=== PATIENT | female | born 1945 | race Caucasian/White ===

== ENCOUNTER 2016-07-24 14:32 | Inpatient (IN) | payer OTHER, BC ==
[~2016-07-24] VITALS: Ht 157.5 cm; Wt 54.4 kg
--- NOTE | ~2016-07-24 | CNG ---
[facility] [place] [address] CYTO-NONGYN REPORT PROCEDURE Name: JENNIFER YUNG Room #: 540-P [facility] IN M.R.#: [id number] Admission: 07/24/16 Date of : 43 Discharge: 07/29/16 Report #: [id number] Path Case #: [id number] CYTOPATHOLOGY REPORT COLLECTION DATE: 07/25/2016 RECEIVED DATE: 07/25/2016 SUBMITTING PHYS: Dr. Tim Navarro OTHER PHYS: Dr. Jackie Lara CLINICAL HISTORY: Abdominal ascites; bloating; abdominal masses. SPECIMEN(S) RECEIVED: A.Abdominal fluid * * * * * * * * * * * * FINAL DIAGNOSIS: Abdominal fluid: - RARE TUMOR CLUSTERS IDENTIFIED FORMING GLANDS, HIGHLY SUSPICIOUS FOR AN ADENOCARCINOMA. COMMENT: Immunoperoxidase stains are performed. (cell block) Javon-EP4: membranous reactivity present within the clusters of atypical cells Calretinin: non-reactive within the cells of interest Desmin: reactive within the mesothelial cells. Based on the morphology, the immunohsitochemical stains and the history of ovarian masses, the cells are most likely suggestive of an adenocarcinoma. The diagnosis is limited due to the scant cellularity of the malignant cells. [place]: Dr. Esha Ellsworth. Findings are discussed with Dr. Flores at 4:00 pm on 07/29/16. (IUV; 07/26/16) PATHOLOGIST: Na U. Vadlamani, M.D. REPORT ELECTRONICALLY SIGNED BY: Na Taveras M.D. DATE/TIME: 07/29/2016 16:18 * * * * * * * * * * * * GROSS PATHOLOGY: A. Abdominal fluid: The specimen is submitted unfixed, labeled "Jennifer Yung". Received by the Cytology Department is 25 mL of cloudy red fluid. One ThinPrep slide and a cell block were prepared. (clt 07.25.2016) CLIENT TECHNICAL PROFESSIONAL(S): NADIA Davila(ASCP), [address] [address] CYTO-NONGYN REPORT PROCEDURE Name: JENNIFER YUNG Room #: 540-P [facility] IN ..#: [id number] Admission: 07/24/16 Date of : 43 Discharge: 07/29/16 Report #: [id number] Path Case #: [id number] INITIAL CPT CODE(S): A; 67482, 21545, 50613, 02946, 49093 Professional services performed by [facility] at [address], [place] [address] [facility] performed by [facility] at [address] [place] [address]., [address], [place] [address]. [facility], [address] [place] [address] PHONE: [phone] DIRECTOR: Magnus W. Hiral, M.D. * * * END OF REPORT * * *
--- NOTE | ~2016-07-24 | P ---
[facility] [place] [address] PROCEDURE REPORT Name: ZE CALDERA Room #: 540-P [facility] IN M.R.#: [id number] Admission: 07/24/16 Attend Phys: Ramon Dumont MD Discharge: Date of : 43 Report #: [id number] THIS REPORT FOR: //name// CC: Ramon [facility] L[facility] DATE OF SERVICE: 07/27/2016 PROCEDURE PERFORMED: Colonoscopy. HISTORY OF PRESENT ILLNESS: The patient is a 70-year-old female with abdominal distention, had normal CT showing massive ascites as well as likely metastatic ovarian cancer CA-125 level was significantly elevated. The reason for EGD and colonoscopy is for anemia. EGD showed severe grade D erosive esophagitis. DESCRIPTION OF PROCEDURE: The risks and benefits of the procedure were explained to the patient, those risks including but not limited to bleeding, perforation, the risk of sedation. She understood these risks and gave informed consent. Conscious sedation was given using fentanyl and Versed. Next, a digital rectal exam was abnormal and I felt a mass within the rectum, although this may be external compression on digital exam. Next, using a standard [employer] colonoscope, the scope was placed in the patient's anus and advanced under direct vision to approximately hepatic flexure. At this point, the colon was very redundant, her abdomen was distended. Because of her ascites I did not want to press any further at this point. The transverse, descending, and sigmoid colon were all normal. The rectal mucosa was normal, however, again, I was able to palpate external compression in the rectum. There was no mucosal abnormality; however. The scope was then withdrawn and the procedure terminated. The patient tolerated the procedure well. IMPRESSION: 1. Unable to pass the scope into the ascending colon; however, transverse, descending and sigmoid were all normal. The rectal mucosa was normal, but there was an obvious abnormality noted on digital rectal exam consistent with an external compression into the rectal mucosa. RECOMMENDATIONS: 1. No evidence of active bleeding on EGD or colonoscopy today. As per EGD report recommend PPI therapy and Carafate. 2. Await further workup for possible ovarian cancer. [address] [address] PROCEDURE REPORT Name: ZE CALDERA Room #: 540-P [facility] IN .R.#: [id number] Admission: 07/24/16 Attend Phys: Ramon Dumont MD Discharge: Date of : 43 Report #: [id number] Thank you for allowing me to participate in her care. <ELECTRONICALLY SIGNED> By: Phoenix Han MD 07/28/16 0922 1140 12 Phoenix Han MD /nt
--- NOTE | ~2016-07-24 | P ---
[facility] [place] [address] PROCEDURE REPORT Name: ZE CALDERA Room #: 540-P ADM IN M.R.#: [id number] Admission: 07/24/16 Attend Phys: Ramon Dumont MD Discharge: Date of : 43 Report #: [id number] THIS REPORT FOR: //name// CC: Ramon Lara DATE OF SERVICE: 07/27/2016 PROCEDURE PERFORMED: Upper endoscopy. HISTORY OF PRESENT ILLNESS: The patient is a 70-year-old female with abdominal distention, who underwent a CT scan of the abdomen and pelvis on 07/24/2016 showing multiple large intraperitoneal masses highly concerning for ovarian tumor with multiple metastasis. Massive ascites was noted, small pleural infusions were noted, hepatic lesions also noted. The patient has iron deficiency anemia as well as dysphagia. Paracentesis was performed on the removing 3.4 liters blood tinged ascites, the cytology is pending. The plan is for an EGD and colonoscopy at this point. DESCRIPTION OF PROCEDURE: The risks and benefits of the procedure were explained to the patient, those risks including but not limited to bleeding, perforation, the risk of sedation. She understood these risks and gave informed consent. Conscious sedation was given using fentanyl and Versed. Next, using a standard [employer] upper endoscope, the scope was placed in the patient's mouth and advanced under direct vision through the esophagus, stomach and into the second portion of the duodenum. The upper esophagus was normal. In the mid to distal esophagus, there was severe grade D erosive esophagitis with several ulcerations. There was no active bleeding, but the mucosa was very friable. Upon entering the stomach, a moderate sized hiatal hernia was noted. Overall, the gastric mucosa was normal. The pylorus was normal and patent. The duodenal bulb, first and second portion were all normal. The scope was then withdrawn and the procedure terminated. The patient tolerated the procedure well. IMPRESSION: 1. Severe grade D erosive esophagitis. 2. Hiatal hernia. 3. Otherwise, normal upper endoscopy. RECOMMENDATIONS: 1. Recommend b.i.d. PPI therapy as well as liquid Carafate. 2. We will proceed with colonoscopy next today. [address] [address] PROCEDURE REPORT Name: ZE CALDERA Katherin Room #: 540-P [facility] IN [facility].#: [id number] Admission: 07/24/16 Attend Phys: Ramon Dumont MD Discharge: Date of : 43 Report #: [id number] Thank you for allowing me to participate in her care. <ELECTRONICALLY SIGNED> By: Phoenix Han MD 07/28/16 0922 1137 45 Phoenix Han MD /nt
--- NOTE | ~2016-07-24 | HC ---
[facility] [place] [address] CONSULTATION Name: ZE CALDERA Room #: 540-P ADM IN M.R.#: [id number] Admission: 07/24/16 Attend Phys: Rmaon Dumont MD Discharge: Date of : 43 Report #: [id number] THIS REPORT FOR: //name// CC: Ramon Lara MD REASON FOR CONSULTATION: Abdominal masses and ascites and possible liver metastasis. HISTORY OF PRESENT ILLNESS: The patient is a 70-year-old female, originally from [place], who lives here now, now had been here in town and who noted about may be a several-week history of not feeling good and about 2- or 3-day history of ankle swelling. She denies fevers, chills, weight change or shortness of air. She does have some intermittent swallowing trouble sometimes. She is also a little bit more gassy. She notes her ankle has been a little bit more swollen for the last several days. She had not noticed any blood in her urine or stool that she is aware of. She has had some abdominal discomfort. She has still been working part-time. Here in the emergency room, she was found to have a CAT scan that showed multiple large intraperitoneal masses, mixed cystic and solid, worrisome for ovarian cancer with multiple mets, mass with ascites, possible hepatic lesions and pathologic celiac and retroperitoneal adenopathy. The patient had not had any previous difficulties and has had never been anemic before. I do not believe she has had a colonoscopy and EGD either ever or in quite some time; we will need to clarify this. SOCIAL HISTORY: She is semi-retired, works at [employer] home and I think, she said for about 22 years. Nonsmoker. No alcohol, no street drugs. FAMILY HISTORY: It sounds like father when she was young; she is not really sure much about that. Mother, she mentioned, hypertension and lipid abnormalities, I think. She also said she may have had cancer and had hysterectomy, but survived it. She thought maybe ovarian cancer, but I would be more suspicious of a cervical or uterine abnormality. One brother had pancreatic cancer at age 57. Another brother recently, she is not sure of what; [place]. I think, no sisters and no children. She is here with a very good friend of hers, Vignesh Reaves. LABORATORY DATA: Other tests and exams here include, as I said, CT abdomen and pelvis, which talked about the multiple large intraperitoneal masses, highly suspicious for ovarian tumor with multiple metastasis and masses or ascites. She has also had lab tests with a CBC that showed a white count of 9.3, hemoglobin 9.9, MCV 80.4 with an RDW of 15.2 and platelets of 512,000. Differential mostly non-acute. BMP, we will also check liver function tests as we do not have that. We will also check a CEA and a CA-125. [address] [address] CONSULTATION Name: ZE CALDERA Katherin Room #: 540-P [facility] IN M.R.#: [id number] Admission: 07/24/16 Attend Phys: Ramon Dumont MD Discharge: Date of : 43 Report #: [id number] ALLERGIES: The patient has troubles with, I believe, TYLENOL, ALCOHOL, ANTIHISTAMINES, PENICILLIN, may be CLARITIN and DECONGESTANTS. MEDICATIONS: At this time in the hospital include flu vaccine, Zofran p.r.n. and IV fluids. PHYSICAL EXAMINATION: VITAL SIGNS: The patient's height is 5 feet 2, which is 157.5 cm. Weight is 124 pounds, which is 56.2 kilograms. Blood pressure is 122/62, respirations 18, O2 sat 92%, pulse 79 and temperature afebrile at 97.9. MOOD: She is pleasant and alert and spunky. NEUROLOGIC: Face is symmetrical. She is moving all extremities. HEENT: Oropharynx clear. LYMPHATICS: No enlarged lymph nodes in the supraclavicular, cervical, axillary or inguinal region. ABDOMEN: Has obvious ascites and makes it difficult to assess for masses. EXTREMITIES: Has trace edema. She says it is actually better today. DISCUSSION: Discussed with the patient that we are worried that she might have cancer causing the fluid and the masses and I told we do not know for sure. They will try to take a look at the ascites and look for cells that are floating. She will call our office next week for results. If we do not get an answer, we may do a repeat paracentesis or may be need to do a biopsy. I also talked about checking tumor markers. I talked about checking a CAT scan of the chest to make sure she does not have a cold mets or primary up there. We also talked about her anemia and the need to check iron, B12, folate, retic count, Hemoccult and possible need for GI evaluation. I also mentioned the possibility of [employer]NER and oncology evaluation, depending upon what we find. ASSESSMENT AND PLAN: 1. Massive ascites with abdominal and pelvic masses and retroperitoneal lymph nodes, very worrisome for ovarian cancer. If so, this is probably stage IV. We will check a CT chest. The patient will call next week regarding cytology. Tumor markers also pending. 2. Microcytic anemia. We will check iron, B12, folate, retic count and Hemoccult. 3. Ascites, may need repeat paracentesis. The patient will call next week for followup. <ELECTRONICALLY SIGNED> By: Messi Flores MD 07/25/16 1927 0900 1456 Messi Flores MD /nt
--- NOTE | ~2016-07-24 | CNG ---
[facility] [place] [address] CYTO-NONGYN REPORT PROCEDURE Name: JENNIFER YUNG Room #: 540-P [facility] IN M.R.#: [id number] Admission: 07/24/16 Date of : 43 Discharge: 07/29/16 Report #: [id number] Path Case #: [id number] CYTOPATHOLOGY REPORT COLLECTION DATE: 07/29/2016 RECEIVED DATE: 07/29/2016 SUBMITTING PHYS: Dr. Messi Flores OTHER PHYS: Dr. Tim Lara CLINICAL HISTORY: ABD bloating. Suspect ovarian cancer. SPECIMEN(S) RECEIVED: A.Abdominal fluid * * * * * * * * * * * * FINAL DIAGNOSIS: A. Abdominal fluid: POSITIVE FOR MALIGNANCY; MALIGNANT CELLS IDENTIFIED FORMING GLANDS COMPATIBLE WITH AN ADENOCARCINOMA. (PLEASE SEE COMMENT) COMMENT: Examination shows tumor clusters with similar morphology identified on the most recent specimen, [id number], (please see separate report for details). Immunohistochemical stains are performed based on the history available from the prior case. (Cell block): Calretinin: non-reactive within the cells of interest BerEP4: strong membranous reactivity present ER: non-reactive WT1: rare cells showing strong nuclear reactivity P63: strong nuclear reactivity present D2-40: non-reactive Based on the morphology as well as the immunohistochemical stains, the malignant cells certainly appear to be of mullerian origin (either ovarian papillary serous carcinoma or primary peritoneal serous carcinoma). Co-review: Dr. Esha Ellsworth. (IUV:csd; d/t: 07/31/2016) PATHOLOGIST: Na Taveras M.D. REPORT ELECTRONICALLY SIGNED BY: Na Taveras M.D. DATE/TIME: 07/31/2016 15:12 * * * * * * * * * * * * GROSS PATHOLOGY: A. Abdominal fluid: The specimen is submitted unfixed, labeled "Jennifer Yung". Received by the Cytology Department is 55 mL [facility] [place] [address] CYTO-NONGYN REPORT PROCEDURE Name: JENNIFER YUNG Room #: 540-P [facility] IN [facility].#: [id number] Admission: 07/24/16 Date of : 43 Discharge: 07/29/16 Report #: [id number] Path Case #: [id number] of cloudy red fluid. One ThinPrep slide and a cell block were prepared. (clt 07.29.2016) TERRAZZO FINISHER(S): NADIA Murrell(ASCP)IAC INITIAL CPT CODE(S): A; 24695, 02410, 50980, 89768, 56044, 14909, 16091, 19596 Professional services performed by [facility] at [address] , [place] [address] Technical services performed by [facility] at [address] [place] [address], [address], [place] [address]. [facility] [address] [facility], [address] [place] [address] PHONE: [phone] DIRECTOR: Magnus Blackman M.D. * * * END OF REPORT * * *
--- NOTE | ~2016-07-24 | EKG ---
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 : 1945 Requested By: Gualberto Stevens Order Number: [id number] MD: Rowdy Hahn Measurements Intervals [place] Rate: 92 P: 60 DE: 132 QRS: 39 QRSD: 83 T: -5 QT: 370 QTc: 458 Interpretive Statements Sinus rhythm Atrial premature complexes in couplets Borderline T abnormalities, inferior leads No previous ECG available for comparison Electronically Signed On 07-24-2016 19:12:23 CDT by Rowdy Hahn [email or web address] <ELECTRONICALLY SIGNED> By: Rodwy Hahn MD, [facility] 07/24/16 1912 51 51 Rowdy Hahn MD, [facility] /EPI
[2016-07-24] MEDS ORDERED: DOXYCYCLINE 10100 MG PO (16:17)
[2016-07-24] MEDS ORDERED: CIPRO500 MG PO (16:17)
[2016-07-24 16:28] LABS: URINE BILIRUBIN NEGATIVE (Negative); URINE BLOOD NEGATIVE (Negative); URINE COLOR YELLOW; URINE GLUCOSE-RANDOM* NEGATIVE (Negative); URINE KETONES TRACE (Negative); URINE NITRITE NEGATIVE (Negative); URINE PROTEIN (DIPSTICK) TRACE (Negative); URINE SPECIFIC GRAVITY >= 1.030 (1.003-1.035); URINE UROBILINOGEN 0.2 E.U./dl (0.2-1.0)
[2016-07-24 16:42] LABS: HEMATOCRIT 30.6 % (37.0-47.0); HEMOGLOBIN 9.9 gm/dL (12.0-15.0); MCH 26.1 pg (26.0-34.0); MCHC 32.5 g/dL (28.0-37.0); MCV 80.4 fL (80.0-100.0); PLATELET COUNT 512 thou/uL (150-400); RBC 3.81 mil/uL (4.20-5.00); RDW 15.2 % (10.5-14.5); WBC 9.3 thou/uL (4.0-11.0)
[2016-07-24 16:45] LABS: MANUAL DIFF YES
[2016-07-24 17:01] LABS: ANION GAP 7 mmol/L (7-16); BUN 25 mg/dL (7-18); CALCIUM 8.7 mg/dL (8.5-10.1); CHLORIDE 101 mmol/L (98-107); CO2 27 mmol/L (21-32); CREATININE 0.7 mg/dL (0.6-1.3); GLUCOSE 96 mg/dL (70-99); POTASSIUM 3.8 mmol/L (3.5-5.1); SODIUM 135 mmol/L (136-145)
[2016-07-24 17:07] LABS: ALBUMIN 2.1 g/dL (3.4-5.0); ALKALINE PHOSPHATASE 67 U/L (46-116); DIRECT BILIRUBIN < 0.1 mg/dL (<0.1-0.3); SGOT 32 U/L (15-37); SGPT 18 U/L (30-65); TOTAL BILIRUBIN 0.2 mg/dL (<0.1-1.0); TOTAL PROTEIN 6.6 g/dL (6.4-8.2); TROPONIN-I < 0.04 ng/mL (<0.04-0.07)
[2016-07-24 17:25] LABS: ABSOLUTE NEUTROPHILS 7.5 thou/uL (1.4-8.2); ANISOCYTOSIS 1+; TOTAL CELL COUNT 100
[2016-07-25 09:33] LABS: OBSERVED RETIC COUNT 1.52 % (0.6-2.6)
[2016-07-25 09:34] LABS: ABSOLUTE RETIC COUNT 0.057 10^6/uL
[2016-07-25 10:03] LABS: ALBUMIN 1.9 g/dL (3.4-5.0); CALCIUM 8.2 mg/dL (8.5-10.1); CREATININE 0.7 mg/dL (0.6-1.3); POTASSIUM 3.6 mmol/L (3.5-5.1); TOTAL BILIRUBIN 0.3 mg/dL (<0.1-1.0); TOTAL PROTEIN 5.9 g/dL (6.4-8.2)
[2016-07-25 10:04] LABS: % SATURATION 15 % (20-39); IRON 22 ug/dL (50-170); TIBC 142 ug/dL (250-450); UIBC 120 ug/dL
[2016-07-25 10:12] LABS: APTT 25.9 Seconds (24.5-32.8); INR 1.1
[2016-07-25 10:30] LABS: FOLIC ACID 19.2 ng/mL (8.6-58.9); TSH 4.443 uIU/mL (0.358-3.740)
[2016-07-25 11:32] LABS: BF NUCLEATED CELLS 1210; BF RBC 67890; COLOR RED; TOTAL VOLUME 60 mL
[2016-07-25 11:33] LABS: CLARITY TURBID; MANUAL DIFF YES
[2016-07-25 12:34] LABS: BF MACROPHAGE 27; BF NEUTROPHILS 35
[2016-07-26 05:10] LABS: BODY FLUID ALBUMIN 1.8 g/dL (()); BODY FLUID AMYLASE 41 U/L (()); BODY FLUID GLUCOSE 90 mg/dL (())
[2016-07-26 06:11] LABS: BODY FLUID LDH 1111 IU/L (())
[2016-07-26 10:40] LABS: HEMATOCRIT 31.1 % (37.0-47.0); MCHC 32.1 g/dL (28.0-37.0); MCV 80.9 fL (80.0-100.0); RBC 3.84 mil/uL (4.20-5.00); RDW 15.9 % (10.5-14.5); WBC 7.5 thou/uL (4.0-11.0)
[2016-07-26 10:53] LABS: APTT 24.5 Seconds (24.5-32.8); INR 1.1
[2016-07-28] MEDS ORDERED: ENOXAPARIN60 MG/0.1 SUBQ (14:15)
[2016-07-29 07:11] LABS: HEMATOCRIT 31.7 % (37.0-47.0); HEMOGLOBIN 10.1 gm/dL (12.0-15.0); MCH 25.7 pg (26.0-34.0); MCHC 31.8 g/dL (28.0-37.0); RBC 3.91 mil/uL (4.20-5.00); RDW 15.7 % (10.5-14.5); WBC 6.3 thou/uL (4.0-11.0)
[2016-07-29] MEDS ORDERED: LASIX 20 MG TAB20 MG PO (11:46)
== END 2016-07-29 14:20 | disposition home or self-care (01) | DRG 754 ==
LOC: ER 14:32 → 5S 18:58 → EROBS 18:58 → 5S 20:01
PROVIDERS: Family Medicine; Internal Medicine Hematology & Oncology; Nurse Practitioner
PROC: 0W9G3ZZ Drainage of Peritoneal Cavity, Percutaneous Approach (ICD-10-PCS; 2016-07-25)
PROC: 0DJD8ZZ Inspection of Lower Intestinal Tract, Via Natural or Artificial Opening Endoscopic (ICD-10-PCS; principal; 2016-07-27)
PROC: 0DJ08ZZ Inspection of Upper Intestinal Tract, Via Natural or Artificial Opening Endoscopic (ICD-10-PCS; 2016-07-27)
PROC: 0W9G3ZZ Drainage of Peritoneal Cavity, Percutaneous Approach (ICD-10-PCS; 2016-07-29)
DX: C56.9 Malignant neoplasm of unspecified ovary (principal); I26.99 Other pulmonary embolism without acute cor pulmonale; E44.0 Moderate protein-calorie malnutrition; R18.0 Malignant ascites; K20.9 Esophagitis, unspecified; D53.9 Nutritional anemia, unspecified; K44.9 Diaphragmatic hernia without obstruction or gangrene; I10 Essential (primary) hypertension; Z88.8 Allergy status to other drugs, medicaments and biological substances; Z28.21 Immunization not carried out because of patient refusal; Z88.0 Allergy status to penicillin; Z90.710 Acquired absence of both cervix and uterus; Z80.8 Family history of malignant neoplasm of other organs or systems
CPT/HCPCS: 10785

== ENCOUNTER → 2016-08-29 | Outpatient (CLI) | payer OTHER, BC ==
[~2016-08-29] MED LIST: CIPRO500 MG PO; DOXYCYCLINE 10100 MG PO; ENOXAPARIN60 MG/0.1 SUBQ; LASIX 20 MG TAB20 MG PO
[2016-08-29 08:22] LABS: ABSOLUTE NEUTROPHILS 5.3 thou/uL (1.4-8.2); BASOPHILS 0.9 % (0.0-2.0); EOSINOPHILS 1.2 % (0.0-3.0); HEMATOCRIT 32.3 % (37.0-47.0); HEMOGLOBIN 10.3 gm/dL (12.0-15.0); LYMPHOCYTES 11.9 % (24.0-44.0); MCHC 31.9 g/dL (28.0-37.0); MCV 81.8 fL (80.0-100.0); MONOCYTES 6.3 % (1.0-8.0); PLATELET COUNT 605 thou/uL (150-400); POLYS 79.7 % (36.0-66.0); RBC 3.95 mil/uL (4.20-5.00); RDW 17.8 % (10.5-14.5); WBC 6.6 thou/uL (4.0-11.0)
[2016-08-29 08:23] LABS: MANUAL DIFF NO
[2016-08-29 08:34] LABS: PROTIME 10.3 Seconds (9.3-11.4)
== END | disposition home or self-care (01) ==
LOC: ULTRA 07:44
PROVIDERS: Internal Medicine Hematology & Oncology
DX: R18.8 Other ascites (principal)

== ENCOUNTER 2016-09-24 03:36 | Inpatient (IN) | payer OTHER, BC ==
[2016-09-24] VITALS (140 sets, daily range): BP systolic 65–148; BP diastolic 26–78
[~2016-09-24] VITALS: Ht 157.5 cm; Wt 72.8 kg
--- NOTE | ~2016-09-24 | P ---
[facility] [place] [address] PROCEDURE REPORT Name: MICHAELPETERZE Room #: 242-P [facility] IN M.R.#: [id number] Admission: 09/24/16 Attend Phys: Pernell Nelson MD Discharge: 09/30/16 Date of : 43 Report #: [id number] THIS REPORT FOR: //name// CC: Ramon Lara DATE OF SERVICE: 09/24/2016 DATE OF SERVICE: 09/24/2016. PROCEDURE: Emergent endotracheal intubation. INDICATION: Hypoxemic respiratory failure, failing multiple modes of supplemental oxygen. PROCEDURE NOTATION: Decision to intubate the patient made after initial evaluation and consultation, patient was prepped in usual fashion for intubation. The patient was poorly responsive, laid in supine position. Already had NG tube and placed to continuous suction. The patient received 20 mg of etomidate for sedation. Using a MAC 4 blade, a grade 1 view of the vocal cords was noted. Oropharynx is noted to be dry and some mild blood noted on the vocal cords. A 7.5 ET tube was inserted initially the 24 cm, but unilateral breath sounds were noted on the right only. This was repositioned to 22 cm at the teeth, bilateral breath sounds appreciated. Positive Easy Cap color change. The patient tolerated well. No noted complications. ET tube secured in place. Chest x-ray pending at the time of dictation. <ELECTRONICALLY SIGNED> By: Luis Llanos MD 09/30/16 1453 0757 1235 Luis Llanos MD /nt
--- NOTE | ~2016-09-24 | HC ---
[facility] [place] [address] CONSULTATION Name: ZE CALDERA Room #: 242-P [facility] IN M.R.#: [id number] Admission: 09/24/16 Attend Phys: Pernell Nelson MD Discharge: 09/30/16 Date of : 43 Report #: [id number] THIS REPORT FOR: //name// CC: Ramon [facility] Ruckerie Jane DATE OF SERVICE: 09/24/2016 PULMONARY CRITICAL CARE CONSULTATION DATE OF SERVICE: 09/24/2016. REFERRING PROVIDER: Dr. Ramon Dumont. REASON FOR CONSULTATION: Hypoxemic respiratory failure, pneumonia. HISTORY OF PRESENT ILLNESS: Our group was asked urgently evaluate the patient this morning in consultation regarding the above. Unable to get any history from the patient. History taken from review of records, discussion with a friend who is at the bedside and healthcare providers, 70-year-old woman recently diagnosed, appears to be ovarian cancer, currently on therapy for the last 2 months, initially presented with abdominal mass, lymphadenopathy and hepatic metastases, exact further distant malignancy is unknown at this time and responsive therapy is unknown to me at this time. Apparently had complications associated with pulmonary embolism and has been on anticoagulation with enoxaparin. She presented to the emergency department earlier this morning with complaints of shortness of breath to respiratory distress. The patient cannot give much further history. Of note, a CT scan of the chest for PE was done, which revealed no PE but bilateral basilar predominantly basilar infiltrates for diffuse some infiltrates appreciated. The significant distention of the esophagus and there was fluid filled as well was also noted. The patient was taken to the ICU, although the patient continued to have worsening hypoxemia despite being on high-flow nasal cannula and nonrebreather mask. The patient again remained poorly responsive and NG tube had been inserted with significant evacuation of the stomach noted. The patient was subsequently intubated, is now undergoing further workup and management. ALLERGIES: INCLUDE PENICILLIN, ANTIHISTAMINES, ALKYLAMINE, TYLENOL, PENICILLIN, PSEUDOEPHEDRINE, ALCOHOL. PAST MEDICAL HISTORY: 1. Ovarian cancer stage is exactly unclear what appears to be advanced stage. 2. Recent venous thromboembolism. 3. Ascites related to above. [facility] [address] [place] [address] CONSULTATION Name: ZE CALDERA Katherin Room #: 242-P [facility] IN .R.#: [id number] Admission: 09/24/16 Attend Phys: Pernell Nelson MD Discharge: 09/30/16 Date of : 43 Report #: [id number] OUTPATIENT MEDICATIONS: Include Senokot, magnesium citrate, enoxaparin and Lasix. SOCIAL HISTORY: Unobtainable due to current status. FAMILY HISTORY: Unobtainable due to current status. REVIEW OF SYSTEMS: Otherwise, unobtainable due to her current status. PHYSICAL EXAMINATION: VITAL SIGNS: Afebrile, pulse 120 and regular, respiratory rate 36, blood pressure 131/74. GENERAL: This is a cachectic appearing elderly woman, poorly responsive. HEENT: Reveals a pale conjunctivae, dry oropharynx. NECK: Supple. Jugular venous distention noted. LUNGS: Coarse inspiratory and expiratory rhonchi throughout. CARDIOVASCULAR: Heart was tachycardic, but regular. No murmurs noted. ABDOMEN: Distended with positive fluid waves and obvious ascites, unable to palpate, liver and spleen well. EXTREMITIES: Revealed 2+ pitting edema with prolonged recovery time. Pulses were present, but somewhat diminished in the periphery. LABORATORY DATA: Arterial blood gas done on high-flow cannula nonrebreather mask revealed pH 7.37, pCO2 is 61, pO2 of 61, bicarbonate 35. Lactate was 1.97. White blood cell count 0.3, hemoglobin 7.9, hematocrit 24, platelet count 315, D-dimer is 14.8. Sodium 135, potassium 4.0, chloride 97, bicarbonate 35, BUN 42, creatinine 1.2, glucose 160, albumin was 1.8, total bilirubin is 0.3. IMPRESSION: 1. Acute hypoxemic respiratory failure requiring mechanical ventilatory support, likely secondary to aspiration pneumonitis and pneumonia. 2. Pulmonary infiltrates consistent with aspiration pneumonitis pneumonia and/or community-acquired pneumonia. 3. Neutropenia. 4. Metastatic ovarian cancer, prognosis seems very limited, although will discuss further with Oncology regarding treatment responses at this point and overall prognosis, family aware unaware of findings as she has not been communicative with them. 5. Anemia. SUGGESTIONS: 1. ICU care. 2. Ventilatory support. 3. PICC placement, consider sepsis protocol. 4. Broad-spectrum antimicrobials to cover for neutropenic pneumonia. 5. Consider paracentesis, which may easy ability to ventilate the patient as [address] [address] CONSULTATION Name: ZE CALDERA Room #: 242-P [facility] IN M.R.#: [id number] Admission: 09/24/16 Attend Phys: Pernell Nelson MD Discharge: 09/30/16 Date of : 43 Report #: [id number] well as may be helpful diagnostically, considering the possibility of peritonitis. 6. GI and Oncology consultations. 7. Lower extremity venous Doppler. 8. Consider echocardiogram. 9. Hold enoxaparin for now, but likely will need to resume at some point. 10. Trend hemoglobin. 11. Additional recommendations to follow. Total critical care time spent with the patient and nursing as well as friends at bedside 1 hour, not including procedure time. <ELECTRONICALLY SIGNED> By: Luis Llanos MD 09/30/16 1453 0806 1301 Luis Llanos MD /nt
--- NOTE | ~2016-09-24 | CNG ---
[facility] [place] [address] CYTO-NONGYN REPORT PROCEDURE Name: JENNIFER CALDERA Room #: 249-P [facility] IN M.R.#: [id number] Admission: 09/24/16 Date of : 43 Discharge: Report #: [id number] Path Case #: [id number] CYTOPATHOLOGY REPORT COLLECTION DATE: 09/24/2016 RECEIVED DATE: 09/24/2016 SUBMITTING PHYS: Dr. Pernell Nelson OTHER PHYS: Dr. Messi Lara CLINICAL HISTORY: Resp failure, pneumonia, neutropenia. SPECIMEN(S) RECEIVED: A.Abdominal fluid * * * * * * * * * * * * FINAL DIAGNOSIS: A. Abdominal fluid: POSITIVE FOR MALIGNANCY, CONSISTENT WITH AN ADENOCARCINOMA (SEE COMMENT). COMMENT: Scant cells with similar morphology as noted in the prior fluid [id number] are present in the current one. No additional studies are performed. [place]: Dr. Esha Ellsworth. (IUV; 09/25/16) PATHOLOGIST: Na Taveras M.D. REPORT ELECTRONICALLY SIGNED BY: Na Taveras M.D. DATE/TIME: 09/25/2016 11:01 * * * * * * * * * * * * GROSS PATHOLOGY: A. Abdominal fluid: The specimen is submitted unfixed, labeled "AgaJennifer Katherin". Received by the Cytology Department is 15 mL of red fluid. One ThinPrep slide and a cell block were prepared. (clt 09.24.2016) BASE BRANDER(S): NADIA Cooper([facility]) INITIAL CPT CODE(S): A; 61999, 06525 Professional services performed by [facility] at [facility] [address] [address] [facility] [address] [address] CYTO-NONGYN REPORT PROCEDURE Name: JENNIFER CALDERA Room #: 249-[facility] IN ..#: [id number] Admission: 09/24/16 Date of : 43 Discharge: Report #: [id number] Path Case #: [id number] [facility] by [facility] at [address] [place] [address], [address], [place] [address]. [address], [facility] [address] [place] [address] PHONE: [phone] DIRECTOR: Magnus Blackman M.D. * * * END OF REPORT * * *
--- NOTE | ~2016-09-24 | HC ---
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 The patient had come to the hospital yesterday for obstipation, came back later with severe shortness of air, was admitted for probable pneumonia and the shortness of air had gotten worse during that time. She also has a history of PEs and DVT and she is down in the ICU, was intubated this morning for respiratory failure. The patient's history is otherwise unobtainable. I did talk with good friends, Vignesh and a lady friend, but I am not clear, who has had spent some time with her. Patient had been in the office yesterday to receive chemotherapy, which she did and was thought to be stable at that time. I will need to check her blood counts at that time. The patient is currently in the ICU now on the ventilatory machine and become hypoxic and wore out respiratory lr overnight. The patient has a history of adenocarcinoma, most consistent with an ovarian primary or primary peritoneal metastatic to some distal lympnodes, massive ascites, large complex cystic masses in the pelvis and upper abdomen. There were also hepatic lesions worrisome and also a lesion in the right lower lung. The patient had seen Dr. Farheen White who also thought this was most likely adenocarcinoma of the primary peritoneal ovarian subtype and agreed with chemotherapy to be followed by possible surgery. The patient also has a history of erosive gastritis, received IV iron. She was also begun on proton pump inhibitors and also acute pulmonary embolism was later on found to have a nonocclusive clot in I believe her left leg. Recently, as an outpatient, she has been receiving Lovenox for that. SOCIAL HISTORY: Semi-retired, used to work for [employer] home for about 22 years, nonsmoker, no alcohol or street drugs. FAMILY HISTORY: Father when she was young, does not really know much about his health history. Mother had hypertension, lipid abnormalities, may have a cancer, but she is not sure, did have a hysterectomy, but survived it, unclear if it is ovarian cancer or not, also check to see if the patient had [facility] [address] [place] [address] CONSULTATION Name: MICHAELPETERZE Room #: 249-P ADM IN M.R.#: [id number] Admission: 09/24/16 Attend Phys: Pernell Nelson MD Discharge: Date of : 43 Report #: [id number] genetic test or not. She did have a brother with pancreatic cancer, another one recently. No children. LABORATORY DATA: Lab exam here in the hospital, note that a paracentesis is planned. Yesterday BUN was 42, creatinine of 1.2. AST of 51, total bilirubin of 0.3, calcium 8.1, alkaline phosphatase of 69, albumin 1.8. Recent coags normal, white count 0.3, hemoglobin 7.9, which is down from 10.3 back in August, but I think it might be after transfusion and MCV 81, platelets 315, ANC is essentially zero. CA-125 had been 2580, CEA had been 2. Patient had a CAT scan done yesterday which no central pulmonary artery filling defects to suggest pulmonary embolus, nonspecific fluid filled distention of the esophagus suggested moderate size hiatal hernia. They also saw abdominal ascites, no spinal lesions. PHYSICAL EXAMINATION: VITAL SIGNS: Height is 5 feet 2 inches or 157.5 cm, weight is 136 pounds or 61.7 kilograms, blood pressure is currently 131/74, O2 sat 90% at 6:48, respirations 22, pulse 118, temperature is 98.3. MEDICATIONS: At this time in the hospital currently include insulin on a sliding scale, dobutamine drip as needed, epinephrine drip as needed, vasopressin drip as needed, meropenem has been begun at 500 mg q. 8, pantoprazole 40 b.i.d. IV, aerosol respiratory therapy, vancomycin was given as a single dose. She had also received a dose of azithromycin and furosemide and ceftriaxone, which have not been continued. Rest on her exam, the patient is currently intubated and having an IV line placed. She is not responding to voice or light touch, did talk with her two family friends. HEENT: Face appears symmetrical, thin-appearing. LYMPHATICS: No enlarged lymph nodes in the supraclavicular or cervical region. ABDOMEN: Very protuberant, slightly tight. There are plans for paracentesis later today. LUNGS: Slightly coarse, but diminished at bases. EXTREMITIES: Without clubbing, cyanosis. There is about 2 mm edema. ASSESSMENT AND PLAN: 1. Stage 4b ovarian cancer status post cycle 1 day 8 single agent Taxol with carboplatin a week before. 2. Neutropenia, suspect due to overwhelming sepsis agree with cultures and multiple antibiotics. 3. Respiratory failure. Continue with mechanical ventilation. 4. Ascites, note plans for paracentesis. 5. History of pulmonary emboli and DVT, Lovenox is currently being held. 6. Questionable history of coffee-ground emesis. The patient is on Pepcid and other acid jessica. No plans for GI evaluation. 7. Obstipation. The patient will make Dulcolax and enemas available to try to [facility] [address] [place] [address] CONSULTATION Name: KORINMaureenZE Room #: 249-P [facility] IN M.R.#: [id number] Admission: 09/24/16 Attend Phys: Pernell Nelson MD Discharge: Date of : 43 Report #: [id number] help get that out of the lower rectum, so that we can help her breathing 8. Anemia had received IV iron. We will transfuse as needed to keep above 7. 9. Prognosis is very guarded at this point. I talked bluntly and openly with the family friend about concern that the patient may or may not make it through this. We should see which way she is going to do over the next 2 or 3 days. I also told that I will be here for the next day or two and that my partner will be here, and after. We will follow with you. <ELECTRONICALLY SIGNED> By: Messi Flores MD 09/25/16 0744 0918 0142 Messi Flores MD /nt
--- NOTE | ~2016-09-24 | EKG ---
[place] [address] [facility] [place] [address] ELECTROCARDIOGRAM REPORT Name: VERENICEZE Pandey Room #: 249-P ADM IN ..#: [id number] Admission: 09/24/16 Attend Phys: Ramon Dumont MD Discharge: Date of : 43 Report #: [id number] THIS REPORT FOR: //name// [facility] ED Test Date: 2016-09-24 Test Time: 04:23:38 Pat Name: ZE CALDERA Department: Room: 249 Gender: F Business Intelligence Reporting Analyst: YASMIN : 1945 Requested By: Jeremy Higgins Order Number: [id number] MD: Rowdy Hahn Measurements Intervals [place] Rate: 124 P: -25 TN: 123 QRS: 23 QRSD: 80 T: 53 QT: 313 QTc: 450 Interpretive Statements Sinus tachycardia Nonspecific ST segment abnormality Compared to ECG 07/24/2016 16:52:56 Atrial premature complex(es) no longer present T-wave abnormality no longer present Electronically Signed On 09-24-2016 7:43:52 CDT by Rowdy Hahn [email or web address] <ELECTRONICALLY SIGNED> By: Rowdy Hahn MD, [facility] 09/24/16 0743 0423 0423 Rowdy Hahn MD, [facility] /EPI
--- NOTE | ~2016-09-24 | HC ---
[facility] [place] [address] CONSULTATION Name: MICHAELPETERZE Room #: 249-P ADM IN M.R.#: [id number] Admission: 09/24/16 Attend Phys: Pernell Nelson MD Discharge: Date of : 43 Report #: [id number] THIS REPORT FOR: //name// CC: Ramon Lara INFECTIOUS DISEASE CONSULTATION REASON FOR CONSULTATION: Evaluation of septic shock. HISTORY OF PRESENT ILLNESS: This is a 70-year-old patient with metastatic ovarian cancer on chemotherapy, complicated by pulmonary embolism, presented earlier this morning in respiratory distress, bilateral pulmonary infiltrates, respiratory failure, now profound shock. She is intubated on 3 pressors. Got 6 liters of peritoneal fluid drained this morning. Blood pressure was running in the 90 systolic. CVP has been around 13. She has a right upper extremity PICC. She has a Port-A-Cath in place. Indwelling Lopes catheter. Small amount of liquid stool. She is now sedated. ALLERGIES: PENICILLIN, ANTIHISTAMINES, TYLENOL, PSEUDOEPHEDRINE, ALCOHOL. MEDICATIONS: As noted on her MAR including vancomycin, meropenem, vasopressors. PAST MEDICAL HISTORY: Ovarian cancer, PE diagnosed in July, DVT, esophagitis, appendectomy. FAMILY HISTORY AND SOCIAL HISTORY: Otherwise, noncontributory. REVIEW OF SYSTEMS: As noted above. PHYSICAL EXAMINATION: VITAL SIGNS: Currently afebrile, blood pressure 98/60, tachycardic 120s, orally intubated. NG tube in place. SKIN: Unremarkable. LYMPH: Unremarkable. CHEST: Right chest Port-A-Cath. Unremarkable. LUNGS: Clear anteriorly. HEART: Regular without murmur. CARDIOVASCULAR: She is tachycardic. ABDOMEN: Soft with ascites. GENITOURINARY: External genitalia unremarkable with indwelling Lopes catheter. EXTREMITIES: Unremarkable. She was cachectic. LABORATORY STUDIES: Sodium 136, potassium 3.6, bicarbonate 31, creatinine 1.4, lipase 41, albumin 1.8, ALT 32, alkaline phosphatase 69, bilirubin 0.3, lactate 3. BNP 372. INR 1. Hemoglobin 7.7, WBC 0.1, platelet 205,000, 16% [place] [address] CONSULTATION Name: ZE CALDERA Room #: 249-P [facility] IN ..#: [id number] Admission: 09/24/16 Attend Phys: Pernell Nelson MD Discharge: Date of : 43 Report #: [id number] neutrophils. Urinalysis unremarkable. ABGs 100%, FIO2 showed a pO2 of 63, pCO2 of 46, pH 7.48. Blood, sputum, urine and abdominal cultures are pending. CT of the chest, fluid filled distention of the esophagus, bilateral pulmonary infiltrates, abdominal ascites, cardiomegaly. IMPRESSION: 1. Metastatic ovarian cancer on chemotherapy with advanced disease and overall poor prognosis. 2. Neutropenia due to chemotherapy and sepsis. 3. Bilateral pulmonary infiltrates, aspiration pneumonitis most likely versus atypical pneumonia or opportunistic infection. 4. Profound septic shock. RECOMMENDATION: Given her overall prognosis, I would recommend comfort measures. In the meantime, we will continue broad antibiotic coverage, pending cultures. I have discussed the case with the nursing staff. We will add antifungal therapy. <ELECTRONICALLY SIGNED> By: Jeremy Sena MD 09/25/16 0851 1611 2228 Jeremy Sena MD /nt
[~2016-09-24 03:36] MED LIST changes: +CITRATE OF MAG296 ML PO; +SENOKOT-S1 TA1 PO
[2016-09-24 04:03] LABS: ABG SAMPLE TYPE ARTERIAL; BE(vivo) 7.2 mmol/L (-2 to +3); HCO3 33.4 mmol/L (22.0-26.0); LACTATE 2.31 mmol/L (0.5-2.0); O2(CT) 12.2 mL/dL (15.0-23.0); O2Hb 87.1 % (92.0-98.0); PCO2 56.4 mmHg (35.0-45.0); PO2 59.6 mmHg (80.0-100.0); tCO2 35.1 mmol/L (24.0-30.0)
[2016-09-24 04:04] LABS: STICK SITE R.RADIAL
[2016-09-24 04:14] LABS: HEMATOCRIT 24.3 % (37.0-47.0); HEMOGLOBIN 7.9 gm/dL (12.0-15.0); MCH 26.3 pg (26.0-34.0); MCHC 32.4 g/dL (28.0-37.0); PLATELET COUNT 315 thou/uL (150-400); RBC 3.01 mil/uL (4.20-5.00); RDW 16.8 % (10.5-14.5)
[2016-09-24 04:16] LABS: ANION GAP 3 mmol/L (7-16); BUN 42 mg/dL (7-18); CALCIUM 8.1 mg/dL (8.5-10.1); CHLORIDE 97 mmol/L (98-107); CO2 35 mmol/L (21-32); CREATININE 1.2 mg/dL (0.6-1.0); GLUCOSE 160 mg/dL (74-106); MANUAL DIFF YES; SODIUM 135 mmol/L (136-145)
[2016-09-24 04:26] LABS: WBC 0.3 thou/uL (4.0-11.0)
[2016-09-24 04:32] LABS: ALBUMIN 1.8 g/dL (3.4-5.0); ALKALINE PHOSPHATASE 69 U/L (46-116); CK-MB MASS 4.7 ng/mL (<0.5-3.6); MAGNESIUM 4.2 mg/dL (1.8-2.4); NT-PRO BRAIN NAT PEPTIDE 372 pg/mL (<300); SGOT 51 U/L (15-37); SGPT 32 U/L (30-65); TOTAL BILIRUBIN 0.3 mg/dL (<0.1-1.0); TOTAL PROTEIN 5.6 g/dL (6.4-8.2); TROPONIN-I < 0.04 ng/mL (<0.04-0.07)
[2016-09-24 04:44] LABS: APTT 26.8 Seconds (24.5-32.8); PROTIME 9.9 Seconds (9.3-11.4)
[2016-09-24 05:02] LABS: TOTAL CELL COUNT 100
[2016-09-24 05:03] LABS: ANISOCYTOSIS 1+
[2016-09-24 06:58] LABS: ABG SAMPLE TYPE ARTERIAL; BE(vivo) 8.1 mmol/L (-2 to +3); HCO3 34.5 mmol/L (22.0-26.0); LACTATE 1.97 mmol/L (0.5-2.0); O2(CT) 10.7 mL/dL (15.0-23.0); PCO2 60.7 mmHg (35.0-45.0); PO2 61.3 mmHg (80.0-100.0); pH 7.373 (7.360-7.450); sO2 90.2 % (92.0-98.0); tCO2 36.4 mmol/L (24.0-30.0)
[2016-09-24 06:59] LABS: STICK SITE L.RADIAL
[2016-09-24 09:17] LABS: CALCIUM 7.8 mg/dL (8.5-10.1); CREATININE 1.3 mg/dL (0.6-1.0); POTASSIUM 3.8 mmol/L (3.5-5.1)
[2016-09-24 09:18] LABS: AMYLASE 134 U/L (25-115)
[2016-09-24 09:22] LABS: HEMATOCRIT 24.4 % (37.0-47.0); HEMOGLOBIN 7.7 gm/dL (12.0-15.0); MCHC 31.7 g/dL (28.0-37.0); MCV 81.8 fL (80.0-100.0); PLATELET COUNT 241 thou/uL (150-400); RBC 2.98 mil/uL (4.20-5.00); RDW 16.6 % (10.5-14.5)
[2016-09-24 09:23] LABS: MANUAL DIFF YES
[2016-09-24 09:25] LABS: WBC 0.1 thou/uL (4.0-11.0)
[2016-09-24 09:41] LABS: ABG SAMPLE TYPE ARTERIAL; BE(vivo) 9.5 mmol/L (-2 to +3); HCO3 33.9 mmol/L (22.0-26.0); LACTATE 2.28 mmol/L (0.5-2.0); O2(CT) 10.1 mL/dL (15.0-23.0); O2Hb 91.1 % (92.0-98.0); PCO2 46.1 mmHg (35.0-45.0); PO2 63.5 mmHg (80.0-100.0); pH 7.484 (7.360-7.450); sO2 93.5 % (92.0-98.0); tCO2 35.3 mmol/L (24.0-30.0)
[2016-09-24 09:42] LABS: STICK SITE L.RADIAL; TIDAL VOLUME 400 ml; VDS CMV MODE cc
[2016-09-24 10:21] LABS: ABG SAMPLE TYPE VENOUS; BE(vivo) 8.9 mmol/L (-2 to +3); LACTATE 2.27 mmol/L (0.5-2.0); O2Hb VENOUS 55.4 (65.0-85.0); PCO2 VENOUS 51.1 mmHg (41.0-51.0); PO2 VENOUS 30.9 mmHg (35.0-45.0); sO2 VENOUS 60.4 % (65.0-85.0); tCO2 35.6 mmol/L (24.0-30.0)
[2016-09-24 10:22] LABS: STICK SITE LINE; TIDAL VOLUME 400 ml; VDS CMV MODE cc
[2016-09-24 10:50] LABS: URINE BILIRUBIN NEGATIVE (Negative); URINE BLOOD TRACE (Negative); URINE COLOR YELLOW; URINE GLUCOSE-RANDOM* NEGATIVE (Negative); URINE KETONES NEGATIVE (Negative); URINE NITRITE NEGATIVE (Negative); URINE PROTEIN (DIPSTICK) NEGATIVE (Negative); URINE UROBILINOGEN 0.2 E.U./dl (0.2-1.0)
[2016-09-24 11:15] LABS: ANISOCYTOSIS SLIGHT; HYPOCHROMASIA 2+; NUCLEATED RBCS 11 /100WBC; PLATELET ESTIMATE NORMAL; TOTAL CELL COUNT 25
[2016-09-24 11:25] LABS: ABG SAMPLE TYPE VENOUS; BE(vivo) 6.9 mmol/L (-2 to +3); HCO3 31.7 mmol/L (22.0-26.0); LACTATE 2.66 mmol/L (0.5-2.0); O2(CT) 5.7 mL/dL (15.0-23.0); O2Hb VENOUS 54.5 (65.0-85.0); PCO2 VENOUS 46.7 mmHg (41.0-51.0); PO2 VENOUS 29.6 mmHg (35.0-45.0); STICK SITE LINE; TIDAL VOLUME 400 ml; sO2 VENOUS 58.5 % (65.0-85.0); tCO2 33.1 mmol/L (24.0-30.0)
[2016-09-24 13:24] LABS: CALCIUM 7.1 mg/dL (8.5-10.1); CREATININE 1.4 mg/dL (0.6-1.0); POTASSIUM 3.6 mmol/L (3.5-5.1)
[2016-09-24 13:40] LABS: APTT 26.5 Seconds (24.5-32.8); PROTIME 10.2 Seconds (9.3-11.4)
[2016-09-24 14:33] LABS: BF NUCLEATED CELLS 246; BF RBC 69795
[2016-09-24 14:35] LABS: TOTAL VOLUME 60 mL
[2016-09-24 14:36] LABS: CLARITY CLOUDY; COLOR RED; MANUAL DIFF YES
[2016-09-24 15:40] LABS: BF MACROPHAGE 16; BF NEUTROPHILS 17
[2016-09-24 17:45] LABS: CALCIUM 6.8 mg/dL (8.5-10.1); CREATININE 1.5 mg/dL (0.6-1.0); POTASSIUM 3.8 mmol/L (3.5-5.1)
[2016-09-24 17:52] LABS: FIBRINOGEN 342.5 mg/dL (210-360); INR 1.1; PROTIME 11.4 Seconds (9.3-11.4)
[2016-09-24 21:56] LABS: CALCIUM 6.6 mg/dL (8.5-10.1); CREATININE 1.5 mg/dL (0.6-1.0); POTASSIUM 3.7 mmol/L (3.5-5.1)
[2016-09-24 22:05] LABS: APTT 34.2 Seconds (24.5-32.8); FIBRINOGEN 330.9 mg/dL (210-360); INR 1.1; PROTIME 11.8 Seconds (9.3-11.4)
[2016-09-25] VITALS (86 sets, daily range): BP systolic 76–113; BP diastolic 45–66
[2016-09-25 05:29] LABS: CALCIUM 6.4 mg/dL (8.5-10.1); CREATININE 1.4 mg/dL (0.6-1.0); HEMATOCRIT 20.6 % (37.0-47.0); MCH 25.5 pg (26.0-34.0); MCHC 31.4 g/dL (28.0-37.0); MCV 81.2 fL (80.0-100.0); PLATELET COUNT 162 thou/uL (150-400); POTASSIUM 4.1 mmol/L (3.5-5.1); RBC 2.54 mil/uL (4.20-5.00); RDW 16.8 % (10.5-14.5); TOTAL BILIRUBIN 0.3 mg/dL (<0.1-1.0); TOTAL PROTEIN 4.1 g/dL (6.4-8.2)
[2016-09-25 08:05] LABS: HEMOGLOBIN 6.5 gm/dL (12.0-15.0); MANUAL DIFF YES; WBC 0.3 thou/uL (4.0-11.0)
[2016-09-25 08:14] LABS: ABSOLUTE NEUTROPHILS 0.1 thou/uL (1.4-8.2); TOTAL CELL COUNT 25
[2016-09-25 08:16] LABS: ANISOCYTOSIS 1+
[2016-09-25 10:47] LABS: ABG COMMENT A/C; ABG SAMPLE TYPE ARTERIAL; BE(vivo) 2.4 mmol/L (-2 to +3); HCO3 27.8 mmol/L (22.0-26.0); LACTATE 2.37 mmol/L (0.5-2.0); O2(CT) 9.9 mL/dL (15.0-23.0); O2Hb 94.8 % (92.0-98.0); PCO2 47.8 mmHg (35.0-45.0); STICK SITE L.BRACHIAL; TIDAL VOLUME 400 ml; pH 7.382 (7.360-7.450); sO2 96.2 % (92.0-98.0); tCO2 29.2 mmol/L (24.0-30.0)
[2016-09-25 15:07] LABS: BODY FLUID ALBUMIN 1.7 g/dL (()); BODY FLUID AMYLASE 52 U/L (()); BODY FLUID GLUCOSE 95 mg/dL (()); BODY FLUID LDH 1572 IU/L (()); BODY FLUID PROTEIN 3.3 g/dL (())
[2016-09-25 16:30] LABS: HEMATOCRIT 31.4 % (37.0-47.0)
[2016-09-25 16:40] LABS: MCV 81.7 fL (80.0-100.0); RBC 3.84 mil/uL (4.20-5.00); RDW 16.6 % (10.5-14.5)
[2016-09-25 16:43] LABS: HEMOGLOBIN 10.4 gm/dL (12.0-15.0)
[2016-09-25 16:45] LABS: ALBUMIN 1.1 g/dL (3.4-5.0); CALCIUM 6.4 mg/dL (8.5-10.1); CREATININE 1.3 mg/dL (0.6-1.0); POTASSIUM 4.4 mmol/L (3.5-5.1); TOTAL BILIRUBIN 0.7 mg/dL (<0.1-1.0); TOTAL PROTEIN 4.4 g/dL (6.4-8.2); WBC 0.3 thou/uL (4.0-11.0)
[2016-09-26] VITALS (86 sets, daily range): BP systolic 75–130; BP diastolic 37–78
[2016-09-26 06:19] LABS: CALCIUM 6.4 mg/dL (8.5-10.1); CREATININE 1.2 mg/dL (0.6-1.0); POTASSIUM 4.4 mmol/L (3.5-5.1)
[2016-09-26 08:07] LABS: HEMOGLOBIN 10.3 gm/dL (12.0-15.0); MCHC 33.1 g/dL (28.0-37.0)
[2016-09-26 08:09] LABS: HEMATOCRIT 31.2 % (37.0-47.0); MCH 27.7 pg (26.0-34.0); MCV 83.7 fL (80.0-100.0); RBC 3.72 mil/uL (4.20-5.00)
[2016-09-26 08:15] LABS: WBC 0.3 thou/uL (4.0-11.0)
[2016-09-27] VITALS (91 sets, daily range): BP systolic 97–129; BP diastolic 52–75
[2016-09-27 06:24] LABS: ALBUMIN 0.9 g/dL (3.4-5.0); DIRECT BILIRUBIN 0.4 mg/dL (<0.1-0.3); TOTAL BILIRUBIN 0.7 mg/dL (<0.1-1.0); TOTAL PROTEIN 4.1 g/dL (6.4-8.2)
[2016-09-27 10:15] LABS: HEMATOCRIT 29.6 % (37.0-47.0); HEMOGLOBIN 9.7 gm/dL (12.0-15.0); MCH 26.9 pg (26.0-34.0); MCHC 32.7 g/dL (28.0-37.0); MCV 82.3 fL (80.0-100.0); RBC 3.59 mil/uL (4.20-5.00); RDW 16.8 % (10.5-14.5)
[2016-09-27 10:17] LABS: WBC 0.3 thou/uL (4.0-11.0)
[2016-09-27 10:23] LABS: CREATININE 0.9 mg/dL (0.6-1.0); MAGNESIUM 3.3 mg/dL (1.8-2.4)
[2016-09-27 10:26] LABS: CALCIUM 5.9 mg/dL (8.5-10.1)
[2016-09-27 10:33] LABS: PROTIME 10.3 Seconds (9.3-11.4)
[2016-09-28] VITALS (28 sets, daily range): BP systolic 101–126; BP diastolic 49–88
[2016-09-28 05:16] LABS: ABG SAMPLE TYPE ARTERIAL; BE(vivo) -3.8 mmol/L (-2 to +3); HCO3 22.2 mmol/L (22.0-26.0); LACTATE 2.05 mmol/L (0.5-2.0); O2(CT) 13.2 mL/dL (15.0-23.0); O2Hb 90.1 % (92.0-98.0); PCO2 44.4 mmHg (35.0-45.0); PO2 64.9 mmHg (80.0-100.0); STICK SITE R.RADIAL; pH 7.317 (7.360-7.450); tCO2 23.6 mmol/L (24.0-30.0)
[2016-09-28 05:17] LABS: TIDAL VOLUME 400 ml
[2016-09-28 05:18] LABS: HEMATOCRIT 25.5 % (37.0-47.0); HEMOGLOBIN 8.2 gm/dL (12.0-15.0); MCH 27.4 pg (26.0-34.0); MCHC 32.4 g/dL (28.0-37.0); MCV 84.7 fL (80.0-100.0); RBC 3.01 mil/uL (4.20-5.00); RDW 17.1 % (10.5-14.5)
[2016-09-28 05:26] LABS: MAGNESIUM 3.4 mg/dL (1.8-2.4); POTASSIUM 4.2 mmol/L (3.5-5.1)
[2016-09-28 05:28] LABS: WBC 0.2 thou/uL (4.0-11.0)
[2016-09-28 05:30] LABS: CALCIUM 5.9 mg/dL (8.5-10.1)
[2016-09-28 08:37] LABS: DIRECT BILIRUBIN 0.5 mg/dL (<0.1-0.3); TOTAL BILIRUBIN 0.7 mg/dL (<0.1-1.0); TOTAL PROTEIN 4.3 g/dL (6.4-8.2)
[2016-09-29] VITALS (28 sets, daily range): BP systolic 79–113; BP diastolic 42–62
[2016-09-29 04:43] LABS: HEMOGLOBIN 7.7 gm/dL (12.0-15.0)
[2016-09-29 04:44] LABS: HEMATOCRIT 23.8 % (37.0-47.0); MCH 27.6 pg (26.0-34.0); MCHC 32.4 g/dL (28.0-37.0); MCV 85.1 fL (80.0-100.0); RBC 2.8 mil/uL (4.20-5.00); RDW 17.3 % (10.5-14.5)
[2016-09-29 04:56] LABS: CALCIUM 6.1 mg/dL (8.5-10.1); CREATININE 1.2 mg/dL (0.6-1.0); MAGNESIUM 3.6 mg/dL (1.8-2.4); POTASSIUM 4.7 mmol/L (3.5-5.1); WBC 0.2 thou/uL (4.0-11.0)
[2016-09-30] VITALS (32 sets, daily range): BP systolic 63–102; BP diastolic 35–54
[2016-09-30 05:12] LABS: MCH 27.1 pg (26.0-34.0); MCHC 31.4 g/dL (28.0-37.0); MCV 86.3 fL (80.0-100.0); RBC 2.32 mil/uL (4.20-5.00)
[2016-09-30 05:18] LABS: WBC 0.5 thou/uL (4.0-11.0)
[2016-09-30 05:19] LABS: HEMOGLOBIN 6.3 gm/dL (12.0-15.0)
[2016-09-30 05:23] LABS: CREATININE 1.6 mg/dL (0.6-1.0); MAGNESIUM 3.7 mg/dL (1.8-2.4); POTASSIUM 5.8 mmol/L (3.5-5.1)
== END 2016-09-30 11:42 | DRG 870 ==
LOC: ER 03:36 → ICU 04:26 → EROBS 04:26 → ICU 05:09
PROVIDERS: Emergency Medicine; Family Medicine; Internal Medicine; Internal Medicine Gastroenterology; Internal Medicine Pulmonary Disease; Nurse Practitioner Family
PROC: 0BH17EZ Insertion of Endotracheal Airway into Trachea, Via Natural or Artificial Opening (ICD-10-PCS; principal; 2016-09-24)
PROC: 5A1955Z Respiratory Ventilation, Greater than 96 Consecutive Hours (ICD-10-PCS; principal; 2016-09-24)
PROC: 0W9G3ZZ Drainage of Peritoneal Cavity, Percutaneous Approach (ICD-10-PCS; 2016-09-24)
PROC: B5181ZA Fluoroscopy of Superior Vena Cava using Low Osmolar Contrast, Guidance (ICD-10-PCS; 2016-09-24)
PROC: 02HV33Z Insertion of Infusion Device into Superior Vena Cava, Percutaneous Approach (ICD-10-PCS; 2016-09-24)
PROC: 30233N1 Transfusion of Nonautologous Red Blood Cells into Peripheral Vein, Percutaneous Approach (ICD-10-PCS; 2016-09-25)
PROC: 30233R1 Transfusion of Nonautologous Platelets into Peripheral Vein, Percutaneous Approach (ICD-10-PCS; 2016-09-25)
DX: A41.9 Sepsis, unspecified organism (principal); J96.01 Acute respiratory failure with hypoxia; R65.21 Severe sepsis with septic shock; J69.0 Pneumonitis due to inhalation of food and vomit; G93.40 Encephalopathy, unspecified; R18.8 Other ascites; N17.9 Acute kidney failure, unspecified; D61.818 Other pancytopenia; C56.9 Malignant neoplasm of unspecified ovary; E83.41 Hypermagnesemia; K59.00 Constipation, unspecified; E88.09 Other disorders of plasma-protein metabolism, not elsewhere classified; I95.9 Hypotension, unspecified; Z51.5 Encounter for palliative care; Z90.49 Acquired absence of other specified parts of digestive tract; Z86.711 Personal history of pulmonary embolism; Z88.0 Allergy status to penicillin; Z88.1 Allergy status to other antibiotic agents; Z88.8 Allergy status to other drugs, medicaments and biological substances; Z86.718 Personal history of other venous thrombosis and embolism; Z82.49 Family history of ischemic heart disease and other diseases of the circulatory system; Z80.8 Family history of malignant neoplasm of other organs or systems; Z79.82 Long term (current) use of aspirin; Z79.899 Other long term (current) drug therapy; Z66 Do not resuscitate
CPT/HCPCS: 10078; 27000; 85076